=== PATIENT | female | born 1995 | race Caucasian/White ===

== ENCOUNTER 2018-11-13 10:53 | Emergency (ER) | payer MEDICAID ==
[~2018-11-13] VITALS: Ht 162.6 cm; Wt 104.5 kg
[2018-11-13] MEDS ORDERED: LORazepam 2 mg/ml vial IV ONE (11:35)
[2018-11-13] MEDS ORDERED: ondansetron/PF 4mg/2ml inj IV ONE (11:35)
[2018-11-13] MEDS ORDERED: normal saline 1000ML IV soln IVB ONE (11:35)
[2018-11-13] MEDS ORDERED: ketorolac tromethamine 15mg/ml inj. IV ONE (11:35)
[2018-11-13 11:43] LABS: BASOPHILS # (AUTO) 0.1 X10'3 (0-0.2); BASOPHILS % (AUTO) 0.7 % (0-1); EOSINOPHILS # (AUTO) 0.4 X10'3 (0-0.9); HEMATOCRIT 42.3 % (35.0-45.0); HEMOGLOBIN 14.1 g/dl (12.0-16.0); LYMPHOCYTES # (AUTO) 2.8 X10'3 (1.1-4.8); LYMPHOCYTES % (AUTO) 33.3 % (21-51); MEAN CORPUSCULAR HEMOGLOBIN 25.8 PG (27.0-31.0); MEAN CORPUSCULAR HGB CONC 33.4 g/dL (33.0-36.5); MEAN CORPUSCULAR VOLUME 77.2 FL (78-98); MEAN PLATELET VOLUME 7.3 FL (7.4-10.4); MONOCYTES # (AUTO) 0.7 X10'3 (0-0.9); MONOCYTES % (AUTO) 7.9 % (2-12); NEUTROPHILS # (AUTO) 4.4 X10'3 (1.8-7.7); NEUTROPHILS % (AUTO) 53.1 % (42-75); PLATELET COUNT 294 X10'3 (140-440); RED BLOOD COUNT 5.49 X10'6 (4.20-5.60); RED CELL DISTRIBUTION WIDTH 15.8 % (11.5-14.5); WHITE BLOOD COUNT 8.3 X10'3 (4.5-11.0)
[2018-11-13 11:45] LABS: URINE HCG NEGATIVE (NEG)
[2018-11-13 11:48] LABS: CLARITY,URINE CLOUDY (Clear); COLOR,URINE YELLOW (Yellow); GLUCOSE, URINE NEGATIVE (Neg); KETONES,URINE TRACE mg/dl (Neg); LEUKOCYTE ESTERASE ,URINE NEGATIVE (Neg); NITRITES, URINE NEGATIVE (Neg); OCCULT BLOOD,URINE SMALL (Neg); PH,URINE 5.5 (4.8-8.0); PROTEIN,URINE 100 mg/dl (Neg); UROBILINOGEN,URINE 0.2 E.U/dL (0.2-1.0)
[2018-11-13 11:53] LABS: UA COLLECTION TYPE CLN CATCH MIDSTREAM
[2018-11-13 11:56] LABS: INR 1.1 INR
[2018-11-13 11:58] LABS: ALANINE AMINOTRANSFERASE 80 U/L (12-78); ALBUMIN 3.9 G/DL (3.4-5.0); ALKALINE PHOSPHATASE 73 IU/L (46-116); ANION GAP 12 (8-16); ASPARTATE AMINO TRANSFERASE 42 U/L (10-37); BILIRUBIN,TOTAL 0.4 MG/DL (0.1-1.0); BLOOD UREA NITROGEN 12 MG/DL (7-18); BUN/CREATININE RATIO 16.2 (6.6-38.0); CALCIUM 9.3 MG/DL (8.5-10.1); CHLORIDE 104 MMOL/L (99-107); CREATININE 0.74 MG/DL (0.40-0.90); GLUCOSE 112 MG/DL (70-104); POTASSIUM 3.6 MMOL/L (3.5-5.1); SODIUM 139 MMOL/L (135-145); TOTAL CARBON DIOXIDE 23.5 MMOL/L (24-32); TOTAL PROTEIN 7.8 G/DL (6.4-8.2); eGFR > 90 ML/MIN
[2018-11-13 12:08] LABS: SQUAMOUS EPITHELIAL CELL,UR MANY /LPF (FEW)
[2018-11-13 12:10] LABS: AMORPHOUS URATES 3+
[2018-11-13 12:15] LABS: BACTERIA,URINE 1+ /HPF (Neg)
[2018-11-13] MEDS ORDERED: HYDROmorphone 1 mg/ml syringe IV ONE (13:00)
[2018-11-13] MEDS ORDERED: tamsulosin 0.4mg capsule PO ONE (13:05)
[2018-11-13] MEDS ORDERED: tamsulosin 0.4mg capsule PO SCH (13:05)
[2018-11-13] MEDS ORDERED: HYDR-4383 PO (14:01)
[2018-11-13] MEDS ORDERED: IBUP-1985 PO (14:01)
[2018-11-13] MEDS ORDERED: FLO0.4C PO (14:01)
[2018-11-13 14:34] VITALS: BP 167/89
== END 2018-11-13 14:35 | disposition home or self-care (01) ==
LOC: ER 10:54
DX: N13.2 Hydronephrosis with renal and ureteral calculous obstruction (principal); F17.200 Nicotine dependence, unspecified, uncomplicated; Z88.2 Allergy status to sulfonamides; Z88.5 Allergy status to narcotic agent
CPT/HCPCS: 36415; 74176; 80053; 81001; 81025; 85025; 85610; 96361; 96374; 96375; 99284; J1170; J1885; J2060; J2405; J7030